=== PATIENT | male | born 1945 | race Caucasian/White ===

== ENCOUNTER 2017-08-22 13:14 | Emergency (ER) ==
[2017-08-22] MEDS ORDERED: DUONEB NEB STA (13:21)
[2017-08-22 13:23] VITALS: BP 146/98; TEMP 96.8
--- NOTE | 2017-08-22 13:26 | ED.PDOC ---
General ED Provider: Dr. REJI SPARKS Chief Complaint: Shortness of Air Stated Complaint: Pateint state that he started getting short of breath last night unable to lay flat. Denies any chest pain but feels cannot catch her breath. Time Seen by Physician: 13:15 Mode of Arrival: Ambulance Information Source: Patient, EMT Nursing and Triage Documentation Reviewed and Agree: Yes Does patient meet sepsis criteria?: Yes If yes, has appropriate treatment been initiated?: Yes System Inflammatory Response Syndrome: Pulse >90 BPM Sepsis Protocol: For patient's 13 years and over: Temp is 96.8 and below OR 101 and greater Pulse >90 BPM Resp >20/minute Acutely Altered Mental Status Are patient's symptoms suggestive of a new infection, such as: -Pneumonia -Skin, Soft Tissue -Endocarditis -UTI -Bone, Joint Infection -Implantable Device -Acute Abdominal Infection -Wound Infection -Meningitis -Blood Stream Catheter Infection -Unknown Respiratory Complaint Exam - Shortness of Air Complaint/Exam Onset/Duration: 1 day Symptoms Are: Still present Timing: Constant Initial Severity: Moderate Character: Reports: Dyspnea at rest, Dyspnea on exertion Aggravating: Reports: Movement, Weather Associated Signs and Symptoms: Denies: Cough Related History: Reports: Obesity History of Healthcare-Acquired Pneumonia: No Pulmonary Embolism Risk Factors: Reports: Smoking. Denies: OCs/Estrogen, , Malignancy, Recent travel, Bedrest, Recent surgery, Recent trauma, DVT, Previous PE Cardiac Risk Factors: Reports: CAD, Smoking, Elevated lipids Review of Systems - Review Of Systems Constitutional: Reports: No symptoms Eyes: Reports: No symptoms Ears, Nose, Mouth, Throat: Reports: No symptoms Respiratory: Reports: Short of air Cardiac: Denies: Chest pain, Edema, Irregular heart rate GI: Reports: No symptoms : Reports: No symptoms Musculoskeletal: Reports: No symptoms Skin: Reports: No symptoms Neurological: Reports: Anxiety Endocrine: Reports: No symptoms Hematologic/Lymphatic: Reports: No symptoms All Other Systems: Reviewed and Negative Past Medical History - Past Medical History Endocrine: Reports: Hypothyroid, Dyslipidemia Cardiovascular: Reports: CAD Respiratory: Reports: COPD Hematological: Reports: None Gastrointestinal: Reports: None Genitourinary: Reports: None Neuro/Psych: Reports: None Musculoskeletal: Reports: None Cancer: Reports: None - Surgical History General Surgical History: Reports: CABG, Other (coratid endarterectomy on the right. ) - Family History Family History: Reports: None - Social History Smoking Status: Current every day smoker Hx Substance Use: No Alcohol Screening: None Physical Exam - Physical Exam Appearance: Ill-appearing, Obese Respiratory: Breath sounds diminished Cardiovascular: Irregular rhythm, Tachycardia GI/: Soft, Nontender, No masses, Bowel sounds normal, No Organomegaly Musculoskeletal: Normal strength, ROM intact, No edema, No calf tenderness Skin: Warm, Dry, Normal color Neurological: Motor intact, Alert, Oriented Psychiatric: Anxious Interpretation - Radiology Interpretation Radiology Interpretation By: Radiologist Radiology Results: Negative (for PE) - EKG Interpretation Time of EKG #1: 13:43 Rate: Tachy Rhythm: Other (Atrial Fibrillation.) Ectopy: PACs [place]: Left Interpretation: Atrial fibrillation with RVA Re-Evaluation - Re-Evaluation Time of Re-Evaluation: 14:53 Status: Improved Vital Signs Stable: Yes Critical Care Note - Critical Care Note Total Time (mins): 0 Course - Course Hematology/Chemistry: 08/22/17 13:48 08/22/17 13:48 Orders, Labs, Meds: Lab Review 08/22/17 08/22/17 08/22/17 13:21 13:48 13:48 WBC 7.79 RBC 5.56 Hgb 16.4 Hct 48.9 MCV 87.9 MCH 29.5 MCHC 33.5 RDW Coeff of Jairo 15.7 H Plt Count 156 Immature Gran % (Auto) 0.3 Neut % (Auto) 68.9 Lymph % (Auto) 19.5 [place] % (Auto) 9.5 Eos % (Auto) 1.0 Baso % (Auto) 0.8 Immature Gran # (Auto) 0.0 Neut # (Auto) 5.4 Lymph # (Auto) 1.5 [place] # (Auto) 0.7 Eos # (Auto) 0.1 Baso # (Auto) 0.1 D-Dimer (Manual) Puncture Site R brach O2 Saturation 92.0 L ABG pH 7.445 ABG pCO2 33.5 L ABG pO2 62.0 L ABG HCO3 23 ABG Total CO2 24 ABG Base Excess -1 Artem Test + O2 Delivery Device Ra FiO2 % 21.0 Sodium Potassium Chloride Carbon Dioxide Anion Gap BUN Creatinine Estimated GFR (MDRD) BUN/Creatinine Ratio Glucose Lactic Acid Calcium Total Bilirubin AST ALT Alkaline Phosphatase Total Creatine Kinase Troponin I B-Natriuretic Peptide 426 H Total Protein Albumin Globulin Albumin/Globulin Ratio Procalcitonin 08/22/17 08/22/17 08/22/17 13:48 13:48 13:48 WBC RBC Hgb Hct MCV MCH MCHC RDW Coeff of [place] Plt Count Immature Gran % (Auto) Neut % (Auto) Lymph % (Auto) [place] % (Auto) Eos % (Auto) Baso % (Auto) Immature Gran # (Auto) Neut # (Auto) Lymph # (Auto) [place] # (Auto) Eos # (Auto) Baso # (Auto) D-Dimer (Manual) Puncture Site O2 Saturation ABG pH ABG pCO2 ABG pO2 ABG HCO3 ABG Total CO2 ABG Base Excess Artem Test O2 Delivery Device FiO2 % Sodium 137 Potassium 3.9 Chloride 103 Carbon Dioxide 22 L Anion Gap 15.9 BUN 20 H Creatinine 1.16 H Estimated GFR (MDRD) 62.00 BUN/Creatinine Ratio 17.24 Glucose 137 H Lactic Acid 17.7 Calcium 9.4 Total Bilirubin 2.7 H AST 28 ALT 30 Alkaline Phosphatase 101 Total Creatine Kinase 52 Troponin I 0.0200 B-Natriuretic Peptide Total Protein 7.7 Albumin 3.5 Globulin 4.2 Albumin/Globulin Ratio 0.83 Procalcitonin < 0.05 08/22/17 13:48 WBC RBC Hgb Hct MCV MCH MCHC RDW Coeff of [place] Plt Count Immature Gran % (Auto) Neut % (Auto) Lymph % (Auto) [place] % (Auto) Eos % (Auto) Baso % (Auto) Immature Gran # (Auto) Neut # (Auto) Lymph # (Auto) [place] # (Auto) Eos # (Auto) Baso # (Auto) D-Dimer (Manual) 1009.54 Puncture Site O2 Saturation ABG pH ABG pCO2 ABG pO2 ABG HCO3 ABG Total CO2 ABG Base Excess Artem Test O2 Delivery Device FiO2 % Sodium Potassium Chloride Carbon Dioxide Anion Gap BUN Creatinine Estimated GFR (MDRD) BUN/Creatinine Ratio Glucose Lactic Acid Calcium Total Bilirubin AST ALT Alkaline Phosphatase Total Creatine Kinase Troponin I B-Natriuretic Peptide Total Protein Albumin Globulin Albumin/Globulin Ratio Procalcitonin Orders Category Date Time Status ABG DRAW REQUEST Stat CARDIO 08/22/17 13:23 Completed EKG-(ED ONLY) Stat CARDIO 08/22/17 13:22 Completed NEBULIZER TREATMENT Stat CARDIO 08/22/17 13:23 Completed NPO REMINDER: IMAGING ONCE CARE 08/22/17 14:53 Completed ED DECISION SUPPORT MANAGER APPLIED .ONCE EMERGENCY 08/22/17 13:21 Active ED IV/MEDIPORT/POWERPORT .ONCE EMERGENCY 08/22/17 13:21 Active ABG Stat LAB 08/22/17 13:21 Completed B-TYPE NATRIURETIC PEPTIDE Stat LAB 08/22/17 13:48 Completed BLOOD CULTURE (ED ONLY) Stat LAB 08/22/17 13:48 Results CBC W/ AUTO DIFF Stat LAB 08/22/17 13:48 Completed COMPREHENSIVE METABOLIC PANEL Stat LAB 08/22/17 13:48 Completed CREATINE KINASE Stat LAB 08/22/17 13:48 Completed D-DIMER Stat LAB 08/22/17 13:48 Completed LACTIC ACID Stat LAB 08/22/17 13:48 Completed PROCALCITONIN Stat LAB 08/22/17 13:48 Completed TROPONIN I Stat LAB 08/22/17 13:48 Completed 0.9 % Sodium Chloride [Saline Flush] MEDS 08/22/17 13:21 Discontinued 1 syr IVF PRN PRN Enoxaparin Sodium [Lovenox] MEDS 08/22/17 14:54 Discontinued 100 mg SUBCUT ONCE STA Ipratropium/Albuterol Neb [Duoneb] MEDS 08/22/17 13:21 Discontinued 1 vial NEB ONCE STA CHEST, 1V AP ONLY Stat RADS 08/22/17 13:[address] CHEST PE PROTOCOL Stat RADS 08/22/17 14:52 Completed Medications Discontinued Medications Generic Name Dose Route Start Last Admin Trade Name Freq PRN Reason Stop Dose Admin Albuterol/Ipratropium 1 vial 08/22/17 13:21 08/22/17 13:32 Duoneb NEB 08/22/17 13:22 1 vial ONCE STA Administration Enoxaparin Sodium 100 mg 08/22/17 14:54 08/22/17 15:00 Lovenox SUBCUT 08/22/17 14:55 100 mg ONCE STA Administration Sodium Chloride 1 syr 08/22/17 13:21 Saline Flush IVF PRN PRN To flush IV Vital Signs: Temp Pulse Resp BP Pulse Ox 08/22/17 13:14 96.8 F L 102 H 20 146/98 H 95 Departure - Departure Time of Disposition: 16:09 Disposition: TSF SHORT-TRM HOSP Discharge Problem: New onset atrial fibrillation Condition: Stable Pt referred to PMD for follow-up: No IPMP verified?: No Allergies/Adverse Reactions: Allergies No Known Allergies Allergy (Unverified 08/22/17 13:18) Home Medications: Ambulatory Orders Aspirin 81 mg PO DAILY 08/22/17 Clopidogrel Bisulfate [Plavix] 75 mg PO DAILY 08/22/17 Duloxetine HCl [Cymbalta] 60 mg PO DAILY 08/22/17 Lisinopril [Zestril] 40 mg PO BID 08/22/17 Lisinopril/Hydrochlorothiazide [Zestoretic 20-12.5 mg Tab] 1 tab PO DAILY Mirtazapine [Remeron] 30 mg PO BEDTIME 08/22/17 Pravastatin Sodium [Pravachol] 20 mg PO BEDTIME 08/22/17
--- NOTE | 2017-08-22 14:11 | DI ---
Exam: Single view of the chest. Comparison: None available. Reason for exam: Short of breath. FINDINGS: Operative changes are seen after midline sternotomy. No pneumothorax, pleural effusion, o r focal consolidation. Operative changes are seen in the neck soft tissues. Impression: No acute cardiopulmonary process.
[2017-08-22] MEDS ORDERED: LOVENOX SUBCUT STA (14:54)
[2017-08-22 14:56] VITALS: BMI 36.6
--- NOTE | 2017-08-22 15:55 | CT ---
Exam: CTA chest with intravenous contrast, PE protocol with 3-D MIP reformatted images. Comparison: None available. Reason for exam: Elevated D-dimer, shortness of breath. FINDINGS: The thyroid gland appears prominent in size. Multiple sub centimeter ground-glass nodules are seen in the right middle lobe incompletely evaluated secondary to motion artifact. There is a m oderately sized right-sided and a small left-sided pleural effusion with overlying atelectasis/pneumo tylor. The aorta is prominent in size measuring 4.8 cm the level of the arch. The heart is enlarged. Prominent appearing lymph nodes are seen within the mediastinum. No main, proximal, or segmental pulmonary arterial filling defect is seen. Hypodensities seen in the right renal parenchyma statistically a cyst. Incompletely evaluated on thi s examination. Impression: 1. No main, proximal, or segmental pulmonary arterial filling defect is seen. 2. Moderately sized right-sided pleural effusion with a small left-sided pleural effusion and overly ing atelectasis/pneumonia. 3. Dilatation of the ascending aorta measuring 4.8 cm at the level of the arch. 4. Prominent appearing lymph nodes in the mediastinum. Follow-up imaging is recommended to document resolution/stability 5. Partially imaged ground-glass nodules in the right middle lobe incompletely evaluated secondary t o respiratory motion artifact. 6. Right renal hypodensity incompletely characterized on this examination. If clinical concern exis ts, further evaluation may be of
== END 2017-08-22 19:40 | disposition short-term general hospital (02) ==
LOC: ED 13:14
DX: I48.91 Unspecified atrial fibrillation (principal); R06.02 Shortness of breath; E78.5 Hyperlipidemia, unspecified; I25.810 Atherosclerosis of coronary artery bypass graft(s) without angina pectoris; E03.9 Hypothyroidism, unspecified; J44.9 Chronic obstructive pulmonary disease, unspecified; E66.9 Obesity, unspecified; F17.210 Nicotine dependence, cigarettes, uncomplicated; Z79.899 Other long term (current) drug therapy
CPT/HCPCS: 36415; 80053; 82550; 82803; 83605; 83880; 84145; 84484; 85025; 85379; 87040; 93005; 93010; 94640; 96372; 99285

== ENCOUNTER 2017-08-30 07:08 | Emergency (ER) | payer OTHER ==
[2017-08-30 07:37] VITALS: BP 166/118; TEMP 97.8; BMI 37.3
--- NOTE | 2017-08-30 07:38 | ED.PDOC ---
General ED Provider: Dr. STEVO WHITFIELD-ER Primary Care Provider: STEVO WHITFIELD Sepsis Protocol: For patient's 13 years and over: Temp is 96.8 and below OR 101 and greater Pulse >90 BPM Resp >20/minute Acutely Altered Mental Status Are patient's symptoms suggestive of a new infection, such as: -Pneumonia -Skin, Soft Tissue -Endocarditis -UTI -Bone, Joint Infection -Implantable Device -Acute Abdominal Infection -Wound Infection -Meningitis -Blood Stream Catheter Infection -Unknown Past Medical History - Past Medical History Endocrine: Reports: Hypothyroid, Dyslipidemia Cardiovascular: Reports: CAD Respiratory: Reports: COPD Hematological: Reports: None Gastrointestinal: Reports: None Genitourinary: Reports: None Neuro/Psych: Reports: None Musculoskeletal: Reports: None Cancer: Reports: None - Surgical History General Surgical History: Reports: CABG, Other (coratid endarterectomy on the right. ) - Family History Family History: Reports: None - Social History Smoking Status: Current every day smoker Hx Substance Use: No Alcohol Screening: None Course - Course Orders, Labs, Meds: Orders Category Date Time Status EKG-(ED ONLY) Stat CARDIO 08/30/17 07:13 Completed NPO REMINDER: IMAGING ONCE CARE 08/30/17 07:14 Active IV [ED IV/MEDIPORT/POWERPORT] .ONCE EMERGENCY 08/30/17 07:13 Active OXYGEN [ED APPLY O2] .ONCE EMERGENCY 08/30/17 07:14 Active CBC W/ AUTO DIFF Stat LAB 08/30/17 07:25 Received COMPREHENSIVE METABOLIC PANEL Stat LAB 08/30/17 07:25 Received CREATINE KINASE Stat LAB 08/30/17 07:25 Received FREE T4 (FREE THYROXINE) Stat LAB 08/30/17 07:25 Received THYROID STIMULATING HORMONE Stat LAB 08/30/17 07:25 Received TROPONIN I Stat LAB 08/30/17 07:25 Received 0.9 % Sodium Chloride [Saline Flush] MEDS 08/30/17 07:13 Active 1 syr IVF PRN PRN CT CHEST PE PROTOCOL Stat RADS 08/30/17 07:13 Ordered Medications Generic Name Dose Route Start Last Admin Trade Name Freq PRN Reason Stop Dose Admin Sodium Chloride 1 syr 08/30/17 07:13 Saline Flush IVF PRN PRN To flush IV Departure - Departure Allergies/Adverse Reactions: Allergies No Known Allergies Allergy (Unverified 06/23/18 13:18) Home Medications: Ambulatory Orders Aspirin 81 mg PO DAILY 08/22/17 Clopidogrel Bisulfate [Plavix] 75 mg PO DAILY 08/22/17 Duloxetine HCl [Cymbalta] 60 mg PO DAILY 08/22/17 Lisinopril [Zestril] 40 mg PO BID 08/22/17 Lisinopril/Hydrochlorothiazide [Zestoretic 20-12.5 mg Tab] 1 tab PO DAILY Mirtazapine [Remeron] 30 mg PO BEDTIME 08/22/17 Pravastatin Sodium [Pravachol] 20 mg PO BEDTIME 08/22/17
[2017-08-30] MEDS ORDERED: CARDIZEM INJ 125 MG in SODIUM CHLORIDE 100 ML IV SCH (08:00)
--- NOTE | 2017-08-30 09:05 | CT ---
EXAM: CTA CHEST (PE PROTOCOL) HISTORY: Dyspnea, new onset atrial fibrillation TECHNIQUE: CTA chest with intravenous contrast. Multiplanar images were provided with 3-D reconstru ctions. 100 ml Visipaque [id number] FINDINGS: Comparison may be made to 08/22/2017. No pulmonary arterial filling defect. There is moderate atherosclerotic disease. Heart size is with in normal limits. No pericardial effusion. There is no evidence of significant pulmonary vascular c ongestion and no visible pulmonary edema is seen. A few calcified granulomas. There is a tiny nonca lcified 3.3-mm nodule in the right lower lobe which it is stable. Trace left pleural effusion. Smal l right pleural effusion. The pleural effusions have decreased in volume since previous exam. No con solidations. Bones reveal osteophytic spurring of the spine. There is a 1 cm low attenuation lesion in the left he patic lobe which is unchanged and may represent a cyst. IMPRESSION: 1. No pulmonary arterial thromboembolism identified. 2. No vascular congestion or central interstitial edema. Heart size is normal. 3. Moderate atherosclerotic disease. 4. Tiny 3.3 mm nodule right lower lobe is stable. 5. Decreasing pleural effusions, currently small. 6. Small 1 cm low attenuation left hepatic lobe possibly a cyst, correlate with followup right upper quadrant ultrasound.
--- NOTE | 2017-08-30 09:13 | ED.PDOC ---
General ED Provider: Dr. STEVO WHITFIELD-ER Chief Complaint: Palpitations Stated Complaint: i dont feel right Time Seen by Physician: 07:40 Mode of Arrival: Carried Information Source: Patient Exam Limitations: No limitations Primary Care Provider: STEVO WHITFIELD Nursing and Triage Documentation Reviewed and Agree: Yes Does patient meet sepsis criteria?: No System Inflammatory Response Syndrome: Not Applicable Sepsis Protocol: For patient's 13 years and over: Temp is 96.8 and below OR 101 and greater Pulse >90 BPM Resp >20/minute Acutely Altered Mental Status Are patient's symptoms suggestive of a new infection, such as: -Pneumonia -Skin, Soft Tissue -Endocarditis -UTI -Bone, Joint Infection -Implantable Device -Acute Abdominal Infection -Wound Infection -Meningitis -Blood Stream Catheter Infection -Unknown Cardiovascular Complaint Exam - Palpitations Complaint/Exam Onset/Duration: 24 hrs Symptoms Are: Still present Timing: Constant Initial Severity: Mild Current Severity: Moderate Character: Reports: Fast, Irregular Aggravating: Reports: None Alleviating: Reports: None Associated Signs and Symptoms: Reports: Shortness of breath Related History: Similar episode Pulmonary Embolism Risk Factors: Reports: None Thyroid Exam: Normal Quality Indicator For Non-Traumatic Chest Pain/Syncope: EKG Performed Review of Systems - Review Of Systems Constitutional: Reports: No symptoms Eyes: Reports: No symptoms Ears, Nose, Mouth, Throat: Reports: No symptoms Respiratory: Reports: Short of air Cardiac: Reports: Irregular heart rate GI: Reports: No symptoms : Reports: No symptoms Musculoskeletal: Reports: No symptoms Skin: Reports: No symptoms Neurological: Reports: No symptoms Endocrine: Reports: No symptoms Hematologic/Lymphatic: Reports: No symptoms All Other Systems: Reviewed and Negative Past Medical History - Past Medical History Previously Healthy: No Endocrine: Reports: Hypothyroid, Dyslipidemia Cardiovascular: Reports: CAD, A-Fib Respiratory: Reports: COPD Hematological: Reports: None Gastrointestinal: Reports: None Genitourinary: Reports: None Neuro/Psych: Reports: None Musculoskeletal: Reports: None Cancer: Reports: None - Surgical History General Surgical History: Reports: CABG, Other (coratid endarterectomy on the right. ) - Family History Family History: Reports: None - Social History Smoking Status: Current some day smoker Hx Substance Use: No Alcohol Screening: None - Immunizations Tetanus Shot up to Date: Yes Physical Exam - Physical Exam Appearance: Well-appearing, No pain distress, Well-nourished Eyes: BEBETO ENT: Ears normal Neck: Supple Respiratory: Airway patent Cardiovascular: Irregular rhythm, Tachycardia GI/: Soft Musculoskeletal: Normal strength, ROM intact, No edema, No calf tenderness Skin: Warm Neurological: Sensation intact Psychiatric: Affect appropriate, Mood appropriate Interpretation - Radiology Interpretation Radiology Interpretation By: Radiologist Radiology Results: Negative Exam Interpreted: CT Scan - EKG Interpretation Time of EKG #1: 09:14 Rate: [place], Tachy Ectopy: None [place]: NL ST Segment: Normal Critical Care Note - Critical Care Note Total Time (mins): 0 Course - Course Hematology/Chemistry: 08/30/17 07:25 08/30/17 07:25 Orders, Labs, Meds: Lab Review 08/30/17 08/30/17 07:25 07:25 WBC 9.61 RBC 5.97 Hgb 17.5 Hct 52.8 H MCV 88.4 MCH 29.3 MCHC 33.1 RDW Coeff of [place]airo 16.8 H Plt Count 161 Immature Gran % (Auto) 0.3 Neut % (Auto) 67.7 Lymph % (Auto) 22.4 [place] % (Auto) 8.0 Eos % (Auto) 0.9 Baso % (Auto) 0.7 Immature Gran # (Auto) 0.0 Neut # (Auto) 6.5 Lymph # (Auto) 2.2 [place] # (Auto) 0.8 Eos # (Auto) 0.1 Baso # (Auto) 0.1 Sodium 139 Potassium 4.8 Chloride 102 Carbon Dioxide 26 Anion Gap 15.8 BUN 27 H Creatinine 1.44 H Estimated GFR (MDRD) 48.00 BUN/Creatinine Ratio 18.75 Glucose 164 H Calcium 9.7 Total Bilirubin 2.6 H AST 31 ALT 32 Alkaline Phosphatase 100 Total Creatine Kinase 41 Troponin I 0.0240 Total Protein 8.4 H Albumin 3.9 Globulin 4.5 Albumin/Globulin Ratio 0.87 TSH 2.405 Free T4 1.00 Orders Category Date Time Status EKG-(ED ONLY) Stat CARDIO 08/30/17 07:13 Completed NPO REMINDER: IMAGING ONCE CARE 08/30/17 07:14 Active IV [ED IV/MEDIPORT/POWERPORT] .ONCE EMERGENCY 08/30/17 07:13 Active OXYGEN [ED APPLY O2] .ONCE EMERGENCY 08/30/17 07:14 Active CBC W/ AUTO DIFF Stat LAB 08/30/17 07:25 Completed COMPREHENSIVE METABOLIC PANEL Stat LAB 08/30/17 07:25 Completed CREATINE KINASE Stat LAB 08/30/17 07:25 Completed FREE T4 (FREE THYROXINE) Stat LAB 08/30/17 07:25 Completed THYROID STIMULATING HORMONE Stat LAB 08/30/17 07:25 Completed TROPONIN I Stat LAB 08/30/17 07:25 Completed 0.9 % Sodium Chloride [Saline Flush] MEDS 08/30/17 07:13 Active 1 syr IVF PRN PRN 0.9 % Sodium Chloride [Sodium Chloride] 100 ml MEDS 08/30/17 08:00 Active Diltiazem HCl Inj [Cardizem Inj] 125 mg IV 10 mg/hr CT CHEST PE PROTOCOL Stat RADS 08/30/17 07:13 Completed Medications Generic Name Dose Route Start Last Admin Trade Name Freq PRN Reason Stop Dose Admin Diltiazem HCl 125 mg/ Sodium 125 mls @ 10 mls/hr 08/30/17 08:00 Chloride IV .[id number] [id number] Protocol 10 MG/HR Sodium Chloride 1 syr 08/30/17 07:13 Saline Flush IVF PRN PRN To flush IV Vital Signs: Temp Pulse Resp BP Pulse Ox 08/30/17 07:33 97.8 F 122 H 20 166/118 H 85 L BELLO Risk Score BELLO Risk Score: Risk Score Odds of by 30D 0 0.1 (0.1-0.2) 1 0.3 (0.2-0.3) 2 0.4 (0.3-0.5) 3 0.7 (0.6-0.9) 4 1.2 (1.0-1.5) 5 2.2 (1.9-2.6) 6 3.0 (2.5-3.6) 7 4.8 (3.8-6.1) Departure - Departure Time of Disposition: 09:14 Disposition: TSF SHORT-TRM HOSP Discharge Problem: Atrial fibrillation Qualifiers: Atrial fibrillation type: persistent Qualified Code(s): I48.1 - Persistent atrial fibrillation Instructions: A-fib (Atrial Fibrillation) (ED) Condition: Good Pt referred to PMD for follow-up: No IPMP verified?: No Allergies/Adverse Reactions: Allergies No Known Allergies Allergy (Unverified 08/22/17 13:18) Home Medications: Ambulatory Orders Aspirin 81 mg PO DAILY 08/22/17 Clopidogrel Bisulfate [Plavix] 75 mg PO DAILY 08/22/17 Duloxetine HCl [Cymbalta] 60 mg PO DAILY 08/22/17 Lisinopril [Zestril] 40 mg PO BID 08/22/17 Lisinopril/Hydrochlorothiazide [Zestoretic 20-12.5 mg Tab] 1 tab PO DAILY Mirtazapine [Remeron] 30 mg PO BEDTIME 08/22/17 Pravastatin Sodium [Pravachol] 20 mg PO BEDTIME 08/22/17 Transfer Form Completed: Yes Disposition Discussed With: Patient
== END 2017-08-30 10:51 | disposition short-term general hospital (02) ==
LOC: ED 07:08
DX: I48.1 Persistent atrial fibrillation (principal); R06.02 Shortness of breath; I25.810 Atherosclerosis of coronary artery bypass graft(s) without angina pectoris; J44.9 Chronic obstructive pulmonary disease, unspecified; E03.9 Hypothyroidism, unspecified; E78.5 Hyperlipidemia, unspecified; Z79.899 Other long term (current) drug therapy; F17.210 Nicotine dependence, cigarettes, uncomplicated
CPT/HCPCS: 36415; 80053; 82550; 84439; 84443; 84484; 85025; 93005; 93010; 96365; 96366; 99284

== ENCOUNTER 2017-09-12 14:01 | Outpatient (CLI) | END 2017-09-12 14:15 | disposition short-term general hospital (02) | LOC: AMBL 14:01 | PROVIDERS: ATTEND Internal Medicine Geriatric Medicine | DX: R06.02 Shortness of breath (principal); I48.91 Unspecified atrial fibrillation; R60.0 Localized edema; I50.9 Heart failure, unspecified ==

== ENCOUNTER 2018-04-05 10:56 | Outpatient (CLI) | payer OTHER ==
[2018-04-08 08:53] VITALS: BMI 37.3
== END 2018-04-05 10:57 | disposition home or self-care (01) ==
LOC: MERGE 10:56 → RHC-LAB 10:56
PROVIDERS: ATTEND Nurse Practitioner Family
DX: R73.03 Prediabetes (principal); E78.1 Pure hyperglyceridemia; I10 Essential (primary) hypertension
CPT/HCPCS: 36415; 80053; 80061

== ENCOUNTER 2018-04-07 09:19 | Outpatient (CLI) | payer OTHER ==
--- NOTE | 2018-04-07 10:23 | CT ---
EXAM: CT of the abdomen pelvis with contrast History: Elevated liver enzymes. Comparison: None available. Technique: Multiplanar CT images through the abdomen pelvis were obtained following administration o f IV contrast Findings: There is motion artifact. Heart is mildly enlarged. Coronary calcifications. Small right pleural effusion and trace left pleu ral effusion. No acute osseous abnormalities. 1.1 cm lucent lesion within the T12 vertebral body. Sternotomy wires. No discrete gallstones are identified by CT. 1.2 cm hypoattenuating lesion within the left hepatic l obe. The liver might be fatty. Spleen is unremarkable. Pancreas is within normal limits. Atherosc lerotic vascular calcifications. Adrenal glands are unremarkable. No obvious renal masses are ident ified within limitations of the motion artifact. No bowel obstruction. The appendix is not dilated or inflamed. No free air and no ascites. No bladder wall thickening. Prostate is not enlarged. No perirectal inflammation. Scattered colonic stool. Impression: 1. Indeterminate hypoattenuating liver lesion. Recommend further evaluation with ultrasound. If th is is not identified with ultrasound then recommend further evaluation with MRI liver mass protocol. 2. Probable hepatic steatosis. 3. Atherosclerotic vascular disease. 4. Mild cardiomegaly and coronary artery disease. 5. Small right pleural effusion and trace left pleural effusion. 6. Small lucent lesion within the T12 vertebral body and could be benign or malignant. Recommend co rrelation with MRI.
[2018-04-08 08:53] VITALS: BMI 37.3
== END 2018-04-07 09:20 | disposition home or self-care (01) ==
LOC: RAD 09:19 → MERGE 09:19 → RAD 09:20
PROVIDERS: ATTEND Nurse Practitioner Family
DX: R94.5 Abnormal results of liver function studies (principal); Z86.19 Personal history of other infectious and parasitic diseases